=== PATIENT | female | born 1970 ===

== ENCOUNTER 2024-03-05 07:03 | Inpatient (IN) | payer OTHER ==
[~2024-03-05] VITALS: Ht 91.4 cm; Wt 56.7 kg
[2024-03-05] MEDS ORDERED: LEVOTHYROXINE150 MC1 PO (08:13)
[2024-03-05] MEDS ORDERED: SINGULAIR10 MG PO (08:13)
[2024-03-05] MEDS ORDERED: NORVASC5 MG PO (08:13)
[2024-03-05 08:14] VITALS: BP 129/82
[2024-03-05] MEDS ORDERED: PROTONIX40 MG PO (08:14)
[2024-03-05 08:17] VITALS: BP 139/88
[2024-03-05 08:39] LABS: PH,URINE 6.5 (5.0-8.0); URINE APPEARANCE Clear; URINE BILIRRUBIN Negative (NEGATIVE); URINE BLOOD NHT; URINE COLOR Yellow; URINE GLUCOSE Negative (NEGATIVE); URINE KETONE Negative (NEGATIVE); URINE LEUKOCYTE Negative; URINE NITRATE Negative; URINE PROTEIN Negative (NEGATIVE); URINE UROBILINOGEN 0.2 E.U./dl
[2024-03-05 08:41] LABS: HEMATOCRIT 41.7 % (36.0-45.00); MEAN CELL VOLUME 75.2 fL (80.00-100.00); MEAN CORPUSCULAR HEMOGLOBIN 25.2 pg (27.00-32.0); MEAN CORPUSCULAR HGB CONC 33.6 g/dl (32.0-36.0); PLATELET COUNT 314 K/uL (150-450); RED BLOOD COUNT 5.55 M/uL (4.00-6.00); RED CELL DISTRIBUTION WIDTH 17.2 % (11.5-14.5)
[2024-03-05 08:44] LABS: URINE EPITHELIAL CELLS 11.8 uL (0.0-38.8); URINE RBC 28.8 uL (0.0-20.8)
[2024-03-05 08:46] LABS: URINE WBC 1.6 uL (0.0-23.2)
[2024-03-05 09:09] LABS: INR 0.97; PARTIAL THROMBOPLASTIN TIME 26.8 SECONDS (22.0-34.0); PROTHROMBIN TIME 10.6 SECONDS (9.0-11.5)
[2024-03-05 09:20] LABS: ALBUMIN 3.8 gm/dL (3.4-5.0); BILIRUBIN TOTAL 0.51 mg/dL (0.3-1.2); CALCIUM 9.3 mg/dL (8.5-10.1); CREATININE SERUM 0.63 mg/dL (0.55-1.02); GFR 98.85; GLOBULINA 3.7 G/DL (2.4-3.5); POTASSIUM 4.24 mEq/L (3.5-5.1); TOTAL PROTEIN 7.5 gm/dL (6.4-8.2)
[2024-03-05 11:35] LABS: RH POSITIVE
[2024-03-16] MEDS ORDERED: POVIDONE-IODINE 118 ML BOTT TOP ONE (09:00)
[2024-03-16] MEDS ORDERED: CEFAZOLIN SODIUM 1,000 MG VIAL IV ONE (09:00)
[2024-03-16] MEDS ORDERED: THROMBIN,HU/FIBRINOGEN/CALCIUM 10 ML SYRINGE TOP ONE (09:45)
[2024-03-16] MEDS ORDERED: RINGERS SOLUTION,LACTATED 1,000 ML IV SCH (10:45)
[2024-03-16] MEDS ORDERED: PROMETHAZINE HCL 25 MG/ML AMPUL IV PRN (11:00)
[2024-03-16] MEDS ORDERED: MEPERIDINE HCL/PF 50 MG/ML VIAL IV PRN (11:00)
[2024-03-16] MEDS ORDERED: MORPHINE SULFATE 4 MG/ML VIAL IV ONE ×2 (11:20→12:05)
[2024-03-16] MEDS ORDERED: ONDANSETRON HCL 2 MG/ML VIAL IV ONE (12:20)
[2024-03-16 12:45] VITALS: BP 129/82
[2024-03-16 15:48] VITALS: BP 135/84
[2024-03-16 16:14] LABS: HEMATOCRIT 43.5 % (36.0-45.00); HEMOGLOBIN 14.4 g/dL (12.0-15.00); MEAN CELL VOLUME 75.4 fL (80.00-100.00); MEAN CORPUSCULAR HEMOGLOBIN 25.1 pg (27.00-32.0); MEAN CORPUSCULAR HGB CONC 33.2 g/dl (32.0-36.0); PLATELET COUNT 289 K/uL (150-450); RED BLOOD COUNT 5.76 M/uL (4.00-6.00); RED CELL DISTRIBUTION WIDTH 17.7 % (11.5-14.5)
[2024-03-16 20:44] VITALS: BP 135/84
[2024-03-17 03:04] VITALS: BP 150/80
[2024-03-17] MEDS ORDERED: IBUprofen 800 MG TABLET PO PRN (06:00)
[2024-03-17] MEDS ORDERED: OxyCODONE HCL/APAP UD (PERCOCET) PO PRN (06:00)
[2024-03-17 08:40] VITALS: BP 150/98
[2024-03-17] MEDS ORDERED: PANTOPRAZOLE SODIUM 40 MG TABLET.DR PO SCH (09:00)
[2024-03-17] MEDS ORDERED: SIMETHICONE 125 MG CAPSULE PO SCH (09:00)
[2024-03-17] MEDS ORDERED: AMLODIPINE BESYLATE 5 MG TABLET PO SCH (09:00)
[2024-03-17] MEDS ORDERED: DOCUSATE SODIUM 100MG CAP PO SCH (09:00)
[2024-03-17 15:40] VITALS: BP 136/84
[2024-03-18] VITALS: BP 139/80
[2024-03-18] MEDS ORDERED: LEVOTHYROXINE SODIUM 150 MCG TABLET PO SCH (06:00)
[2024-03-18 08:34] VITALS: BP 137/72
[2024-03-18] MEDS ORDERED: DIPHENHYDRAMINE HCL 50 MG CAPSULE PO NR (13:15)
== END 2024-03-18 14:28 | disposition home or self-care (01) | DRG 743 ==
LOC: O/R 03-16 05:26 → SURH 03-16 07:00 → SURG-SUITE 03-16 07:30 → SURH 03-16 07:30 → OB/GYN 03-16 12:54
PROVIDERS: ADMIT Student in an Organized Health Care Education/Training Program; ATTEND Student in an Organized Health Care Education/Training Program
PROC: 0UT90ZZ Resection of Uterus, Open Approach (ICD-10-PCS; principal; 2024-03-16 07:00)
DX: D25.1 Intramural leiomyoma of uterus (principal); D25.2 Subserosal leiomyoma of uterus; D25.0 Submucous leiomyoma of uterus; N93.8 Other specified abnormal uterine and vaginal bleeding; Z20.822 Contact with and (suspected) exposure to COVID-19